=== PATIENT | male | born 1980 | race Two or more races ===

== ENCOUNTER 2025-05-08 18:42 | Emergency (ER) | payer BC, SELFPAY ==
[2025-05-08 19:21] VITALS: BP 146/84; PULSE 64; RESP 18; TEMP 37.1; O2SAT 97; BMI 29.8
--- NOTE | 2025-05-08 19:34 | PD.EDRME ---
Rapid Medical Screening Exam [facility] Arrival date/time: 05/08/25 18:42 45M with history of alcohol use presents to ED with 1 day of epigastric pain and N/V. Patient denies diarrhea. Patient last drank 1 week ago. Patient does not feel like he is withdrawing. Chief Complaint: Abdominal Pain Vital signs: Vital Signs Temperature 98.7 F 05/08/25 19:21 Pulse Rate 64 05/08/25 19:21 Respiratory Rate 18 05/08/25 19:21 Blood Pressure 146/84 H 05/08/25 19:21 Pulse Oximetry (%) 97 05/08/25 19:21 Oxygen Delivery Method Room Air 05/08/25 19:21
[2025-05-08] MEDS: ONDANSETRON ODT 4 MG TABRAP PO (19:49)
[2025-05-08] MEDS: FAMOTIDINE 20 MG TABLET 40 MG PO (19:49)
[2025-05-08] MEDS: MG HYD/AL HYD/SIME (Maalox Reg) SUSP 30 ML UDC PO (19:50)
[2025-05-08 19:59] LABS: Basophils # (Auto) 0.0 Thou/mm3 (0.0-0.2); Basophils % (Auto) 0 % (0-2.5); Eosinophils # (Auto) 0.0 Thou/mm3 (0.0-0.5); Eosinophils % (Auto) 0 % (0-10); Hematocrit 46.4 % (41.0-53.0); Hemoglobin 16.8 g/dL (13.5-16.0); Immature Granulocytes Auto 0.04 Thou/mm3 (0.00-0.00); Lymphocytes # (Auto) 1.8 Thou/mm3 (1.0-4.8); Lymphocytes % (Auto) 11 % (10-50); Mean Corpuscular HGB Conc 36.2 g/dl (31.0-37.0); Mean Corpuscular Hemoglobin 32.8 pg (25.0-35.0); Mean Corpuscular Volume 91 fL (80-100); Monocytes # (Auto) 1.0 Thou/mm3 (0.0-0.8); Monocytes % (Auto) 6 % (0-12); Neutrophils # (Auto) 12.8 Thou/mm3 (1.8-7.7); Neutrophils % (Auto) 82 % (37-80); Nucleated Red Blood Cell # 0.00 Thou/mm3 (0.00-0.00); Nucleated Red Blood Cell % 0 /100 WBC (0); Platelet Count 234 Thou/mm3 (140-440); RDW Standard Deviation 43.7 fL (35.1-43.9); Red Blood Count 5.12 Miln/mm3 (4.50-5.90); White Blood Count 15.7 Thou/mm3 (3.8-10.6)
[2025-05-08 20:16] LABS: Amphetamine/Methamp Scrn,U Negative (Negative); Barbiturate Screen,Urine Negative (Negative); Benzodiazepines Screen,Urine Negative (Negative); Benzoylecgonine Screen, Ur Negative (Negative); Fentanyl Screen,Urine Negative (Negative); Opiate Screen,Urine Negative (Negative); THC Screen,Urine Negative (Negative)
[2025-05-08 20:24] LABS: Alanine Aminotransferase 68 U/L (10-49); Albumin, Serum 4.9 gm/dL (3.5-5.0); Albumin/Globulin Ratio 1.6 (1.2-2.2); Alcohol, Blood Medical < 3.0 mg/dL (0-10.0); Alkaline Phosphatase 53 U/L (46-116); Anion Gap 9 (7-16); Aspartate Amino Transferase 38 U/L (0-34); BUN/Creatinine Ratio 11 Ratio (12-20); Bilirubin,Total 0.8 mg/dL (0.3-1.2); Blood Urea Nitrogen 12 mg/dL (9-23); Calcium 9.8 mg/dL (8.3-10.6); Calcium (Corrected) 9.8 mg/dL (8.5-10.1); Carbon Dioxide 26.7 mMol/L (20.0-31.0); Chloride 104 mMol/L (98-107); Creatinine (Component) 1.1 mg/dL (0.6-1.3); Estimated Creatinine Clearance 99.9 mL/min (>60); Globulin 3.1 gm/dL (2.3-3.5); Glucose 115 mg/dL (74-106); Lipase 26 U/L (12-53); Osmolality,Calculated 280 (275-295); Potassium 4.6 mMol/L (3.4-5.1); Sodium 140 mMol/L (136-145); Total Protein 8.0 gm/dL (5.7-8.2); Triglycerides 116 mg/dL (30-150); eGFR > 60 See Note
--- NOTE | 2025-05-08 20:51 | EDNOTE_ITS ---
<Statement entered by Katt Sanchez MD - 05/12/25 05:44> As co-signing physician, I was present and available for consult prn. I concur with the plan and care as documented by the midlevel provider. ED Abdominal Pain RME/HPI General Chief Complaint: Abdominal Pain Stated complaint: Abdominal pain today, no vomiting Time seen by provider: 05/08/25 20:46 Arrival date/time: 05/08/25 18:42 RME / HPI RME / HPI narrative: 45M with history of alcohol use presents to ED with 1 day of epigastric pain and N/V. Patient denies diarrhea. Patient last drank 1 week ago. Patient does not feel like he is withdrawing. Patient denies any other complaints. No medications taken prior to arrival. Related Data Previous Rx's ?Medication ?Instructions ?Recorded dicyclomine 20 mg tablet 20 mg PO QID PRN abdominal p ain 05/08/25 #20 tabs famotidine 40 mg tablet (Pepcid) 40 mg PO BID #20 tabs 05/08/25 ondansetron HCl 4 mg tablet 4 mg PO Q8H PRN nausea and 05/08/25 vomiting 4 days #20 tabs Allergies Allergy/AdvReac Type Severity Reaction Status Date / Time No Known Drug Allergies Allergy Verified 05/08/25 18:47 Review of Systems Review of Systems Narrative Review of Systems: Review of system reviewed and within normal limits except mentioned in HPI ED Exam Narrative Physical exam: VITAL SIGNS: Reviewed. GENERAL APPEARANCE: Alert and interactive, follows commands, no acute distress, HEAD AND FACE: Non-traumatic. ENT: PERRL, pink conjunctivitis, eyelid no trauma, Mucous membrane moist. NECK: Supple, nontender, no nuchal rigidity. CHEST: No tenderness, no crepitus, no paradoxical movement, no retractions. LUNGS: Clear, well ventilated, symmetric, no rales, no wheezing, no ronchi, no stridor, good breath sounds bilaterally. HEART: Regular rate, regular rhythm, no murmur, no gallops. ABDOMEN: Soft, positive bowel sounds, nondistended, no guarding, nontender, no rebound, no masses, RECTAL: Deferred. GENITAL: Deferred. NEUROLOGICAL: Gross motor function intact sensory function intact, Appropriate for age. MUSCULOSKELETAL: low back nontender, full range of motion. EXTREMITIES: Nontender, full range of motion. SKIN: Color pink, dry, no rash, no lacerations, no abrasions, no contusions. LYMPHATICS: Deferred. Course Quality Measures none Orders Category Date Time Status Alcohol, Blood Medical Stat Lab 05/08/25 19:44 Completed CBC Stat Lab 05/08/25 19:44 Completed CMP [Comprehensive Metabolic Panel] Stat Lab 05/08/25 19:44 Completed Drug Screen,Urine Stat Lab 05/08/25 19:55 Completed Lipase Stat Lab 05/08/25 19:44 Completed Triglycerides Stat Lab 05/08/25 19:44 Completed Famotidine [Pepcid] Med 05/08/25 19:33 Discontinued 40 mg PO X1 ONE Ondansetron Odt [Zofran Odt] Med 05/08/25 19:33 Discontinued 4 mg PO X1 ONE mg Hyd/Al Hyd/Petros Susp [Maalox Susp] Med 05/08/25 19:33 Discontinued 30 ml PO X1 ONE Vital Signs Vital signs: Vital Signs Temperature 98.7 F 05/08/25 19:21 Pulse Rate 64 05/08/25 19:21 Respiratory Rate 18 05/08/25 19:21 Blood Pressure 146/84 H 05/08/25 19:21 Pulse Oximetry (%) 97 05/08/25 19:21 Oxygen Delivery Method Room Air 05/08/25 19:21 Abdominal Pain [facility] Narrative [facility] Narrative:: 45M with history of alcohol use presents to ED with 1 day of epigastric pain and N/V. Patient denies diarrhea. Patient last drank 1 week ago. Patient does not feel like he is withdrawing. Patient denies any other complaints. No medications taken prior to arrival. Patient's workup today all came back unremarkable. Patient was given Maalox, Zofran, with complete resolution of symptoms. BG is not at this time. Patient data External records reviewed:: None Clinical information provided by:: patient and family Social determinants that could affect healthcare access:: alcohol use Patient has the following chronic illnesses:: None How is presenting disease/condition affected by chronic disease/condition?: no chronic disease Evaluation data The following diagnostics were reviewed and interpreted by me:: lab results Lab and/or radiology exams considered but not ordered:: None Interpretation Summary: See results MDM Medications / Prescriptions Medications or Prescriptions considered but not ordered:: None Medication administrations:: Medication Administration History Discontinued Medications Al Hydrox/Mg Hydrox/Simethicone (Mg Hyd/Al Hyd/Petros (Maalox Reg) Susp 30 Ml Udc) 30 ml PO X1 ONE Stop: 05/08/25 19:34 Last Admin: 05/08/25 19:50 Dose: 30 ml Documented By: CVL Famotidine (Famotidine 20 Mg Tablet) 40 mg PO X1 ONE Stop: 05/08/25 19:34 Last Admin: 05/08/25 19:49 Dose: 40 mg Documented By: CVL Ondansetron HCl (Ondansetron Odt 4 Mg Tabrap) 4 mg PO X1 ONE; Protocol Stop: 05/08/25 19:34 Last Admin: 05/08/25 19:49 Dose: 4 mg Documented By: CVL Maalox, Pepcid and Zofran Consultations Consultation(s) initiated? (list below): No Diagnosis Differential diagnosis abdominal pain: abdominal pain and pancreatitis Most likely diagnosis given after review of the tests above:: Gastritis Admission Indicated Admission indicated?: not indicated Admission Request Was there a request for admission?: No Disposition Plan Disposition Plan: Discharge Discharge Attestation Discharge Attestation: The patient and all family members were given an opportunity to ask questions and understood the discharge instructions. Discharge instructions specifically effects, indications for sooner follow up or return to the emergency department, and the expected course of current diagnosis. Patient condition: Stable Discharge Plan Plan Patient Disposition: HOME (Self Care) Discharge Disposition comment: stable Prescriptions/Referrals Prescriptions/Med Rec: New famotidine [Pepcid] 40 mg tablet 40 mg PO BID Qty: 20 0RF dicyclomine 20 mg tablet 20 mg PO QID PRN (Reason: abdominal pain) Qty: 20 0RF ondansetron HCl 4 mg tablet 4 mg PO Q8H PRN (Reason: nausea and vomiting) 4 Days Qty: 20 0RF Referrals: No Primary/Family,Physician [Primary Care Provider] - In 1 week Problem List Clinical Impression: Gastritis Patient/Caregiver Discharge Instructions Discharge Activity: activity as tolerated Education Materials: ED Gastritis (Adult) Additional Instructions: Thank you for the opportunity for serving you today. You are stable for discharged . You are advised to: Follow-up with your PCP in 1 to 2 days Return to ED for worsening of symptoms Increase oral fluids Take medication as prescribed Print Language: Estonian Stand Alone Forms: [facility] Award Info., Patient Portal Info Letter
[2025-05-08 20:57] VITALS: BP 112/76; PULSE 70; RESP 16; TEMP 36.6; O2SAT 96
== END 2025-05-08 21:03 | disposition home or self-care (01) ==
PROVIDERS: Physician Assistant; Emergency Provider Emergency Medicine
DX: K29.70 Gastritis, unspecified, without bleeding (principal)
CPT/HCPCS: 36415; 80053; 80307; 80320; 83690; 84478; 85025; 99283; Q0162; A9270; G0480